=== PATIENT | male | born 1955 | race African-American/Black ===

== ENCOUNTER 2016-10-08 14:07 | Inpatient (IN) | payer MEDICAID ==
[~2016-10-08] VITALS: Ht 177.8 cm; Wt 88.7 kg
[~2016-10-08 14:07] MED LIST: ASPI81CH43 PO; CAR125T PO; ESCI5TAB PO; FURO20TA PO; FURO40TA4 PO; HYDR-2652 PO; ISOS30TA17 PO; SPIR25TA88 PO; SUCR1TAB36 PO
[2016-10-08] MEDS ORDERED: LISINOPRIL 10 MG TAB PO ONE (14:30)
[2016-10-08] MEDS ORDERED: LABETALOL HCL 5 MG/ML 4ML SYRINGE IV ONE (14:30)
[2016-10-08 14:44] LABS: Basophils # (auto) 0 uL; Basophils % (auto) 0.2 % (0.0-2.0); DEFINITIVE VIEW TRANSMISSION; Eosinophils # (auto) 0.1 uL; Eosinophils % (auto) 1.2 % (0.0-7.0); Hematocrit 34.2 % (41.0-53.0); Hemoglobin 10.7 g/dL (13.5-17.5); Lymphocytes # (auto) 1.4 uL; Mean Corpuscular Hemoglobin 26.1 pg (28.0-32.0); Mean Corpuscular Hgb Conc. 31.4 g/dL (32.0-36.0); Mean Corpuscular Volume 82.9 fL (80.0-100.0); Mean Platelet Volume 8.3 fL (7.4-10.4); Monocytes # (auto) 0.6 uL; Monocytes % (auto) 8.6 % (0.0-12.0); Neutrophils # (auto) 4.7 uL; Platelet Count (auto) 338 10^3/uL (140-450); Red Cell Distribution Width 18.8 % (11.6-16.0); White Blood Cell 6.9 10^3/uL (4.4-10.8)
[2016-10-08 15:08] LABS: Albumin 3.5 g/dL (3.4-5.0); BUN/Creatinine Ratio 24.1; Bilirubin, Total 0.4 mg/dL (0.2-1.0); Potassium 4.4 mmol/L (3.5-5.1); Total Protein 7.4 g/dL (6.4-8.2)
[2016-10-08] MEDS ORDERED: ASPirin 325 MG TAB PO ONE (15:45)
[2016-10-08] MEDS ORDERED: ENOXAPARIN SOD 80 MG/0.8ML SYRINGE SC ONE (15:45)
[2016-10-08] MEDS ORDERED: MORPHINE SULFATE 4 MG/ML SYRG IV ONE (16:00)
[2016-10-08] MEDS ORDERED: ONDANSETRON HCL 4 MG/2 ML VIAL IV ONE (16:00)
[2016-10-08] MEDS ORDERED: cloNIDine HCL 0.1 MG TAB ONE (18:51)
[2016-10-08] MEDS ORDERED: MORPHINE SULF INJ 2 MG/ML SYRINGE 1ML IV PRN (19:30)
[2016-10-08] MEDS ORDERED: ISOSORBIDE MONONITRATE 60 MG TAB PO ONE (19:30)
[2016-10-08] MEDS ORDERED: KETOROLAC TROMETH 30 MG/ML 1ML VIAL IV ONE (19:30)
[2016-10-08] MEDS ORDERED: NITROGLYCERIN 0.4 MG SL TAB SL PRN (19:30)
[2016-10-08] MEDS ORDERED: hydrALAZINE HCL 20 MG/ML VL IV PRN (19:45)
[2016-10-08] MEDS ORDERED: cloNIDine HCL 0.1 MG TAB PO ONE (20:00)
[2016-10-08 22:00] VITALS: BP 141/93
[2016-10-08] MEDS: hydrALAZINE HCL 25 MG TAB PO SCH (22:02)
[2016-10-08] MEDS: CARVEDILOL 12.5 MG TAB PO SCH (22:03)
[2016-10-08 22:32] LABS: Urine Bilirubin Negative (Negative); Urine Blood 2+ /uL (Negative); Urine Color Yellow (Yellow); Urine Glucose Normal (Normal); Urine Hyaline Cast MOD /lpf (0 - 2); Urine Ketone TRACE (Negative); Urine Mucus FEW (None Seen); Urine Nitrite Negative (Negative); Urine RBC 9 /hpf (0 - 3); Urine Squamous Epithelial Cell FEW /hpf (<5)
[2016-10-09 01:29] VITALS: BP 141/93
[2016-10-09 05:00] VITALS: BP 122/91
[2016-10-09] MEDS: hydrALAZINE HCL 25 MG TAB PO SCH ×2 (05:47→14:00)
[2016-10-09] MEDS ORDERED: HYDROcodone-ACET 5/325MG TAB PO PRN (06:45)
[2016-10-09 08:55] VITALS: BP 132/83
[2016-10-09] MEDS: CARVEDILOL 12.5 MG TAB PO SCH (09:49)
[2016-10-09] MEDS ORDERED: POTASSIUM CHL 20 Meq TABLET PO SCH (10:00)
[2016-10-09] MEDS ORDERED: SPIRONOLACTONE 25 MG TAB PO SCH (10:00)
[2016-10-09] MEDS ORDERED: ASPirin 81 mg TAB PO SCH (10:00)
[2016-10-09] MEDS ORDERED: ISOSORBIDE MONONITRATE 60 MG TAB PO SCH (10:00)
[2016-10-09] MEDS ORDERED: FUROSEMIDE 40 MG TAB PO SCH (10:00)
[2016-10-09] MEDS ORDERED: MORPHINE SULF INJ 2 MG/ML SYRINGE 1ML IV PRN (10:45)
[2016-10-09 13:00] VITALS: BP 126/83
== END 2016-10-09 14:05 | disposition left against medical advice (07) | DRG 198 ==
LOC: EDUNIT# 14:07 → ER 14:16 → TELE 14:17 → TELE-WESTW 20:52
PROVIDERS: ADMIT Internal Medicine; ATTEND Internal Medicine
DX: I25.10 Atherosclerotic heart disease of native coronary artery without angina pectoris (principal); I50.23 Acute on chronic systolic (congestive) heart failure; I10 Essential (primary) hypertension; F17.210 Nicotine dependence, cigarettes, uncomplicated; F12.90 Cannabis use, unspecified, uncomplicated; D64.9 Anemia, unspecified; I16.0 Hypertensive urgency; Z82.49 Family history of ischemic heart disease and other diseases of the circulatory system; Z86.73 Personal history of transient ischemic attack (TIA), and cerebral infarction without residual deficits; Z91.19 Patient's noncompliance with other medical treatment and regimen; Z90.49 Acquired absence of other specified parts of digestive tract
CPT/HCPCS: 36415; 71010; 73030; 80053; 81001; 84484; 85025; 93005; 96372; 96374; 96375; J1885; J2405; J3490

== ENCOUNTER 2016-11-01 05:31 | Emergency (ER) | payer MEDICAID ==
[~2016-11-01] VITALS: Ht 177.8 cm; Wt 84.4 kg
[2016-11-01] MEDS ORDERED: hydrALAZINE HCL 10 MG TAB PO ONE (05:45)
[2016-11-01] MEDS ORDERED: LABETALOL HCL 5 MG/ML 4ML SYRINGE IV ONE (06:45)
[2016-11-01 06:49] LABS: Basophils # (auto) 0.1 uL; Basophils % (auto) 1.1 % (0.0-2.0); DEFINITIVE VIEW TRANSMISSION; Eosinophils # (auto) 0.1 uL; Eosinophils % (auto) 1.7 % (0.0-7.0); Hematocrit 33.3 % (41.0-53.0); Hemoglobin 10.2 g/dL (13.5-17.5); Lymphocytes # (auto) 1.2 uL; Lymphocytes % (auto) 20.1 % (10.0-50.0); Mean Corpuscular Hemoglobin 25.5 pg (28.0-32.0); Mean Corpuscular Hgb Conc. 30.7 g/dL (32.0-36.0); Mean Corpuscular Volume 83.1 fL (80.0-100.0); Monocytes # (auto) 0.5 uL; Monocytes % (auto) 7.9 % (0.0-12.0); Neutrophils # (auto) 4.1 uL; Neutrophils % (auto) 69.2 % (37.0-80.0); Platelet Count (auto) 421 10^3/uL (140-450); Red Cell Distribution Width 19.5 % (11.6-16.0); White Blood Cell 5.9 10^3/uL (4.4-10.8)
[2016-11-01 06:54] VITALS: BP 172/115
[2016-11-01 07:12] LABS: Albumin 3.5 g/dL (3.4-5.0); Calcium 9.2 mg/dL (8.5-10.1); Potassium 3.7 mmol/L (3.5-5.1)
[2016-11-01 07:14] LABS: BUN/Creatinine Ratio 14.7
[2016-11-01 07:17] LABS: Bilirubin, Total 0.4 mg/dL (0.2-1.0); Total Protein 7.5 g/dL (6.4-8.2)
[2016-11-01] MEDS ORDERED: cloNIDine HCL 0.1 MG TAB PO ONE (07:45)
== END 2016-11-01 09:09 | disposition home or self-care (01) ==
LOC: ER 05:31 → EDBD 05:31 → ER 09:09
DX: I10 Essential (primary) hypertension (principal); I50.9 Heart failure, unspecified; Z79.899 Other long term (current) drug therapy; Z86.73 Personal history of transient ischemic attack (TIA), and cerebral infarction without residual deficits; F17.210 Nicotine dependence, cigarettes, uncomplicated; F12.10 Cannabis abuse, uncomplicated
CPT/HCPCS: 36415; 80053; 85025; 93005; 96374; 99285; J3490

== ENCOUNTER 2016-12-04 01:25 | Inpatient (IN) | payer MEDICAID ==
[~2016-12-04] VITALS: Ht 175.3 cm; Wt 2.5 kg
[2016-12-04 02:05] LABS: Basophils # (auto) 0 uL; Basophils % (auto) 0.8 % (0.0-2.0); DEFINITIVE VIEW TRANSMISSION; Eosinophils # (auto) 0.1 uL; Eosinophils % (auto) 1.1 % (0.0-7.0); Hematocrit 36.8 % (41.0-53.0); Lymphocytes # (auto) 1.1 uL; Lymphocytes % (auto) 22.3 % (10.0-50.0); Mean Corpuscular Hemoglobin 26.9 pg (28.0-32.0); Mean Corpuscular Hgb Conc. 32.5 g/dL (32.0-36.0); Mean Platelet Volume 8.5 fL (7.4-10.4); Monocytes # (auto) 0.5 uL; Monocytes % (auto) 10.2 % (0.0-12.0); Neutrophils # (auto) 3.2 uL; Neutrophils % (auto) 65.6 % (37.0-80.0); Platelet Count (auto) 339 10^3/uL (140-450); White Blood Cell 4.9 10^3/uL (4.4-10.8)
[2016-12-04 02:19] LABS: Albumin 3.4 g/dL (3.4-5.0); Magnesium 2.1 mg/dL (1.6-2.6); Potassium 4.1 mmol/L (3.5-5.1)
[2016-12-04 02:36] LABS: Bilirubin, Total 0.3 mg/dL (0.2-1.0); Total Protein 7.6 g/dL (6.4-8.2)
[2016-12-04] MEDS ORDERED: cloNIDine HCL 0.1 MG TAB PO ONE (02:45)
[2016-12-04] MEDS ORDERED: ASPirin 81 mg TAB PO ONE (02:45)
[2016-12-04 02:48] LABS: Platelet Estimate Adequate
[2016-12-04 02:49] LABS: Anisocytosis Slight
[2016-12-04 02:50] LABS: Microcytosis Slight; Ovalocytes FEW
[2016-12-04] MEDS ORDERED: LABETALOL HCL 200 MG TAB PO ONE (03:45)
[2016-12-04 04:34] LABS: B-Type Natriuretic Peptide 915.35 pg/mL (0-100)
[2016-12-04 04:35] LABS: Temperature: 21.6 C (20.0-25.0)
[2016-12-04] MEDS ORDERED: FUROSEMIDE 40 MG/4 ML VIAL IV ONE (04:45)
[2016-12-04 05:37] LABS: Urine RBC None Seen /hpf (0 - 3)
[2016-12-04 05:48] LABS: Urine Bilirubin Negative (Negative); Urine Blood Negative /uL (Negative); Urine Color Colorless (Yellow); Urine Glucose Normal (Normal); Urine Ketone Negative (Negative); Urine Nitrite Negative (Negative); Urine Urobilinogen Normal (Negative); Urine pH 6.5 (5.0-8.0)
[2016-12-04] MEDS ORDERED: PROMETHAZINE HCL 25 MG/ML 1ML IV PRN (08:30)
[2016-12-04] MEDS ORDERED: HYDROcodone-ACET 5/325MG TAB PO PRN (08:30)
[2016-12-04] MEDS ORDERED: ENALAPRILAT 1.25 MG/ML-1ML VIAL IV PRN (08:30)
[2016-12-04] MEDS ORDERED: MORPHINE SULF INJ 2 MG/ML SYRINGE 1ML IV PRN ×2 (08:30)
[2016-12-04] MEDS ORDERED: LORazepam 0.5 MG TAB PO PRN (08:30)
[2016-12-04] MEDS ORDERED: ACETAMINOPHEN 500 MG TAB PO PRN (08:30)
[2016-12-04] MEDS ORDERED: TEMAZEPAM 15 MG CAP PO PRN (08:30)
[2016-12-04] MEDS ORDERED: NITROGLYCERIN 0.4 MG SL TAB SL PRN (08:30)
[2016-12-04] MEDS ORDERED: LACTULOSE 20Gm/30ML SOLN PO PRN (08:30)
[2016-12-04 09:29] VITALS: BP 156/102
[2016-12-04] MEDS ORDERED: ALBUTEROL SULF 2.5 MG/0.5ML(0.5%) NEB SOLN NEB PRN (09:30)
[2016-12-04] MEDS ORDERED: IPRATROPIUM BROM 0.5 MG/2.5ML INH SOL NEB SCH (09:30)
[2016-12-04] MEDS ORDERED: ALBUTEROL SULF 2.5 MG/0.5ML(0.5%) NEB SOLN NEB SCH (09:30)
[2016-12-04] MEDS ORDERED: ENALAPRIL MALEATE 2.5 MG TAB PO SCH (10:00)
[2016-12-04] MEDS ORDERED: CARVEDILOL 12.5 MG TAB PO SCH (10:00)
[2016-12-04] MEDS ORDERED: ISOSORBIDE MONONITRATE 10 MG PO SCH (10:00)
[2016-12-04] MEDS ORDERED: ASPirin 81 mg TAB PO SCH (10:00)
[2016-12-04] MEDS ORDERED: FUROSEMIDE 40 MG/4 ML VIAL IV SCH (10:00)
[2016-12-04] MEDS ORDERED: ISOSORBIDE DINITRATE 10 MG TAB PO SCH (10:00)
[2016-12-04] MEDS ORDERED: CITALOPRAM HYDROBR 20 MG TAB PO SCH ×2 (10:00)
[2016-12-04] MEDS ORDERED: POTASSIUM CHL 20 Meq TABLET PO SCH (10:00)
[2016-12-04] MEDS ORDERED: ESCITALOPRAM OXALATE 5 MG PO SCH (10:00)
[2016-12-04] MEDS ORDERED: ENOXAPARIN SOD 40 MG/0.4 ML SYRINGE SC SCH (10:00)
[2016-12-04] MEDS ORDERED: PATIENTS OWN MEDICATION (Hydralazine Hcl 50 MG) PO SCH ×2 (12:00)
[2016-12-04] MEDS ORDERED: hydrALAZINE HCL 25 MG TAB PO SCH (12:00)
[2016-12-04] MEDS ORDERED: SUCRALFATE 1 GM TAB PO SCH (12:00)
[2016-12-04] MEDS ORDERED: SODIUM CHLOR 0.9% PF (SALINE LOCK) 10ML VIAL IV SCH (14:00)
[2016-12-04] MEDS ORDERED: SPIRONOLACTONE 25 MG TAB PO SCH (18:00)
[2016-12-04] MEDS ORDERED: ATORVASTATIN 20 MG TAB PO SCH (22:00)
== END 2016-12-04 13:37 | disposition home or self-care (01) | DRG 194 ==
LOC: EDBD 01:25 → ER 01:27 → TELE 01:28
PROVIDERS: ADMIT Internal Medicine; ATTEND Internal Medicine
DX: I11.0 Hypertensive heart disease with heart failure (principal); N28.89 Other specified disorders of kidney and ureter; I50.33 Acute on chronic diastolic (congestive) heart failure; F17.210 Nicotine dependence, cigarettes, uncomplicated; Z82.49 Family history of ischemic heart disease and other diseases of the circulatory system; Z86.73 Personal history of transient ischemic attack (TIA), and cerebral infarction without residual deficits; Z91.19 Patient's noncompliance with other medical treatment and regimen; Z90.49 Acquired absence of other specified parts of digestive tract
CPT/HCPCS: 36415; 70450; 71010; 80053; 81001; 82550; 83735; 83880; 84443; 84484; 85025; 85379; 85652; 86141; 93005; 94640; 96374; G0434

== ENCOUNTER 2016-12-20 04:17 | Emergency (ER) | payer MEDICAID ==
[2016-12-20] MEDS ORDERED: NIFEdipine 10 MG CAP PO ONE (04:45)
[2016-12-20] MEDS ORDERED: LABETALOL HCL 5 MG/ML 4ML SYRINGE IV ONE (07:15)
[2016-12-20 07:28] VITALS: BP 166/102
== END 2016-12-20 09:20 | disposition home or self-care (01) ==
LOC: ER 04:17
DX: I11.0 Hypertensive heart disease with heart failure (principal); I50.9 Heart failure, unspecified; F17.210 Nicotine dependence, cigarettes, uncomplicated; F12.10 Cannabis abuse, uncomplicated; Z91.19 Patient's noncompliance with other medical treatment and regimen; Z79.899 Other long term (current) drug therapy
CPT/HCPCS: 96374; 99284; J3490

== ENCOUNTER 2016-12-26 05:06 | Inpatient (IN) | payer MEDICAID ==
[~2016-12-26] VITALS: Ht 175.3 cm; Wt 79.4 kg
[2016-12-26] MEDS ORDERED: cloNIDine HCL 0.1 MG TAB ONE (05:26)
[2016-12-26] MEDS ORDERED: cloNIDine HCL 0.1 MG TAB PO ONE ×2 (05:45)
[2016-12-26 06:59] LABS: Basophils # (auto) 0 uL; Basophils % (auto) 0.6 % (0.0-2.0); Eosinophils # (auto) 0.1 uL; Eosinophils % (auto) 1.7 % (0.0-7.0); Hematocrit 37.8 % (41.0-53.0); Hemoglobin 12.1 g/dL (13.5-17.5); Lymphocytes # (auto) 1.4 uL; Lymphocytes % (auto) 22.4 % (10.0-50.0); Mean Corpuscular Hemoglobin 27.1 pg (28.0-32.0); Mean Corpuscular Volume 84.6 fL (80.0-100.0); Mean Platelet Volume 8.6 fL (7.4-10.4); Monocytes # (auto) 0.4 uL; Monocytes % (auto) 7.4 % (0.0-12.0); Neutrophils # (auto) 4.1 uL; Neutrophils % (auto) 67.9 % (37.0-80.0); Platelet Count (auto) 304 10^3/uL (140-450); Red Cell Distribution Width 18.9 % (11.6-16.0); White Blood Cell 6.1 10^3/uL (4.4-10.8)
[2016-12-26 07:11] LABS: INR 0.99 (0.9-1.15); Partial Thromboplastin Time 24.3 sec (22.64-33.71); Prothrombin Time 10.7 sec (9.37-12.3)
[2016-12-26 07:35] LABS: Albumin 3.4 g/dL (3.4-5.0); BUN/Creatinine Ratio 11.7; Bilirubin, Total 0.5 mg/dL (0.2-1.0); Calcium 8.5 mg/dL (8.5-10.1); Magnesium 2.4 mg/dL (1.6-2.6); Potassium 4.8 mmol/L (3.5-5.1); Total Protein 7.6 g/dL (6.4-8.2)
[2016-12-26 07:43] LABS: Temperature: 22.1 C (20.0-25.0)
[2016-12-26] MEDS ORDERED: LACTULOSE 20Gm/30ML SOLN PO PRN (09:30)
[2016-12-26] MEDS ORDERED: HYDROcodone-ACET 5/325MG TAB PO PRN (09:30)
[2016-12-26] MEDS ORDERED: FUROSEMIDE 40 MG/4 ML VIAL IV ONE (09:30)
[2016-12-26] MEDS ORDERED: LORazepam 0.5 MG TAB PO PRN (09:30)
[2016-12-26] MEDS ORDERED: ACETAMINOPHEN 500 MG TAB PO PRN (09:30)
[2016-12-26] MEDS ORDERED: NITROGLYCERIN 0.4 MG SL TAB SL PRN (09:30)
[2016-12-26] MEDS ORDERED: ONDANSETRON HCL 4 MG/2 ML VIAL IV PRN (09:30)
[2016-12-26] MEDS ORDERED: TEMAZEPAM 15 MG CAP PO PRN (09:30)
[2016-12-26] MEDS ORDERED: MORPHINE SULF INJ 2 MG/ML SYRINGE 1ML IV PRN ×2 (09:30)
[2016-12-26 09:53] VITALS: BP 198/134
[2016-12-26] MEDS ORDERED: ENALAPRIL MALEATE 10 MG TAB PO SCH (10:00)
[2016-12-26] MEDS ORDERED: ISOSORBIDE DINITRATE 10 MG TAB PO SCH (10:00)
[2016-12-26] MEDS ORDERED: ISOSORBIDE MONONITRATE 10 MG PO SCH (10:00)
[2016-12-26] MEDS ORDERED: FUROSEMIDE 40 MG/4 ML VIAL IV SCH (10:00)
[2016-12-26] MEDS ORDERED: CARVEDILOL 12.5 MG TAB PO SCH ×2 (10:00→22:00)
[2016-12-26] MEDS ORDERED: POTASSIUM CHL 20 Meq TABLET PO SCH (10:00)
[2016-12-26] MEDS ORDERED: CITALOPRAM HYDROBR 20 MG TAB PO SCH (10:00)
[2016-12-26] MEDS ORDERED: ASPirin 81 mg TAB PO SCH (10:00)
[2016-12-26] MEDS ORDERED: ESCITALOPRAM OXALATE 5 MG PO SCH (10:00)
[2016-12-26] MEDS ORDERED: hydrALAZINE HCL 20 MG/ML VL IV ONE (10:30)
[2016-12-26] MEDS ORDERED: hydrALAZINE HCL 20 MG/ML VL IV PRN ×2 (10:30)
[2016-12-26 10:36] LABS: Urine Bilirubin Negative (Negative); Urine Blood TRACE /uL (Negative); Urine Color Yellow (Yellow); Urine Glucose Normal (Normal); Urine Ketone Negative (Negative); Urine Mucus FEW (None Seen); Urine Nitrite Negative (Negative); Urine RBC 4 /hpf (0 - 3); Urine Urobilinogen Normal (Negative); Urine pH 6.5 (5.0-8.0)
[2016-12-26] MEDS ORDERED: hydrALAZINE HCL 25 MG TAB PO SCH (12:00)
[2016-12-26] MEDS ORDERED: SUCRALFATE 1 GM TAB PO SCH (12:00)
[2016-12-26] MEDS ORDERED: PATIENTS OWN MEDICATION (Hydralazine Hcl 50 MG) PO SCH ×2 (12:00)
[2016-12-26] MEDS ORDERED: SODIUM CHLOR 0.9% PF (SALINE LOCK) 10ML VIAL IV SCH (14:00)
[2016-12-26] MEDS ORDERED: SPIRONOLACTONE 25 MG TAB PO SCH (18:00)
[2016-12-26] MEDS ORDERED: ATORVASTATIN 20 MG TAB PO SCH (22:00)
== END 2016-12-26 12:26 | disposition left against medical advice (07) | DRG 194 ==
LOC: ER 05:06 → EDBD 05:06 → TELE 05:07
PROVIDERS: ADMIT Internal Medicine; ATTEND Internal Medicine
DX: I11.0 Hypertensive heart disease with heart failure (principal); I63.9 Cerebral infarction, unspecified; I50.33 Acute on chronic diastolic (congestive) heart failure; F17.210 Nicotine dependence, cigarettes, uncomplicated; R74.8 Abnormal levels of other serum enzymes; I16.0 Hypertensive urgency; I24.9 Acute ischemic heart disease, unspecified; Z86.73 Personal history of transient ischemic attack (TIA), and cerebral infarction without residual deficits; Z91.19 Patient's noncompliance with other medical treatment and regimen; Z82.49 Family history of ischemic heart disease and other diseases of the circulatory system; Z90.49 Acquired absence of other specified parts of digestive tract
CPT/HCPCS: 36415; 71020; 80053; 81001; 82550; 83735; 83880; 84443; 84484; 85025; 85379; 85610; 85652; 85730; 86141; 93005; 94761; 96374; 96375; 96376; G0434

== ENCOUNTER 2016-12-27 09:10 | Emergency (ER) | payer MEDICAID ==
[~2016-12-27] VITALS: Ht 175.3 cm; Wt 81.6 kg
[2016-12-27] MEDS ORDERED: ASPirin 81 mg TAB PO ONE (09:30)
[2016-12-27 09:52] LABS: Basophils # (auto) 0 uL; Basophils % (auto) 0.1 % (0.0-2.0); Eosinophils # (auto) 0 uL; Eosinophils % (auto) 0.3 % (0.0-7.0); Hematocrit 39.8 % (41.0-53.0); Lymphocytes % (auto) 11.6 % (10.0-50.0); Mean Corpuscular Hemoglobin 27.5 pg (28.0-32.0); Mean Corpuscular Hgb Conc. 32.7 g/dL (32.0-36.0); Mean Corpuscular Volume 84.1 fL (80.0-100.0); Mean Platelet Volume 8.4 fL (7.4-10.4); Monocytes # (auto) 0.5 uL; Monocytes % (auto) 5.6 % (0.0-12.0); Neutrophils # (auto) 6.8 uL; Neutrophils % (auto) 82.4 % (37.0-80.0); Platelet Count (auto) 356 10^3/uL (140-450); Red Cell Distribution Width 18.4 % (11.6-16.0); White Blood Cell 8.2 10^3/uL (4.4-10.8)
[2016-12-27 10:06] LABS: INR 1.06 (0.9-1.15); Partial Thromboplastin Time 28.2 sec (22.64-33.71); Prothrombin Time 11.4 sec (9.37-12.3)
[2016-12-27 10:38] LABS: Albumin 3.5 g/dL (3.4-5.0); BUN/Creatinine Ratio 14.5; Bilirubin, Total 0.6 mg/dL (0.2-1.0); Calcium 9.3 mg/dL (8.5-10.1); Magnesium 2.3 mg/dL (1.6-2.6); Potassium 4.1 mmol/L (3.5-5.1); Total Protein 7.8 g/dL (6.4-8.2)
[2016-12-27 11:38] VITALS: BP 146/112
== END 2016-12-27 11:39 | disposition home or self-care (01) ==
LOC: EDBD 09:10 → ER 09:13
DX: R79.89 Other specified abnormal findings of blood chemistry (principal); I11.0 Hypertensive heart disease with heart failure; I50.9 Heart failure, unspecified; F17.210 Nicotine dependence, cigarettes, uncomplicated; F12.10 Cannabis abuse, uncomplicated; Z86.73 Personal history of transient ischemic attack (TIA), and cerebral infarction without residual deficits; Z90.49 Acquired absence of other specified parts of digestive tract; Z79.899 Other long term (current) drug therapy
CPT/HCPCS: 36415; 80053; 83735; 84484; 85025; 85610; 85730; 93005; 94761

== ENCOUNTER 2017-02-03 04:15 | Inpatient (IN) | payer MEDICAID ==
[~2017-02-03] VITALS: Ht 177.8 cm; Wt 88.7 kg
[2017-02-03 05:20] LABS: Basophils # (auto) 0.1 uL; Basophils % (auto) 2.4 % (0.0-2.0); Eosinophils # (auto) 0.1 uL; Eosinophils % (auto) 2.1 % (0.0-7.0); Hematocrit 36.8 % (41.0-53.0); Lymphocytes # (auto) 1.4 uL; Lymphocytes % (auto) 24.8 % (10.0-50.0); Mean Corpuscular Hemoglobin 27.9 pg (28.0-32.0); Mean Corpuscular Hgb Conc. 32.6 g/dL (32.0-36.0); Mean Corpuscular Volume 85.5 fL (80.0-100.0); Mean Platelet Volume 8.6 fL (7.4-10.4); Monocytes # (auto) 0.5 uL; Monocytes % (auto) 9.9 % (0.0-12.0); Neutrophils # (auto) 3.3 uL; Neutrophils % (auto) 60.8 % (37.0-80.0); Platelet Count (auto) 395 10^3/uL (140-450); White Blood Cell 5.5 10^3/uL (4.4-10.8)
[2017-02-03 05:41] LABS: Calcium 8.7 mg/dL (8.5-10.1); Potassium 3.7 mmol/L (3.5-5.1)
[2017-02-03 05:45] LABS: Albumin 3.3 g/dL (3.4-5.0); BUN/Creatinine Ratio 15.2
[2017-02-03 06:02] LABS: Bilirubin, Total 0.3 mg/dL (0.2-1.0); Total Protein 7.3 g/dL (6.4-8.2)
[2017-02-03] MEDS ORDERED: ASPirin 81 mg TAB PO ONE (06:30)
[2017-02-03] MEDS ORDERED: FUROSEMIDE 20 MG/2 ML VIAL IV ONE ×2 (06:30→13:00)
[2017-02-03] MEDS ORDERED: cloNIDine HCL 0.1 MG TAB PO ONE (07:00)
[2017-02-03] MEDS ORDERED: LABETALOL HCL 5 MG/ML 4ML SYRINGE IV ONE (07:00)
[2017-02-03] MEDS ORDERED: ENOXAPARIN SOD 100 MG/1 ML SYRINGE SC ONE (07:00)
[2017-02-03] MEDS ORDERED: DOCUSATE SOD 100 MG CAP PO PRN (13:00)
[2017-02-03] MEDS ORDERED: MORPHINE SULF INJ 2 MG/ML SYRINGE 1ML IV PRN ×2 (13:00)
[2017-02-03] MEDS ORDERED: NITROGLYCERIN 0.4 MG SL TAB SL PRN (13:00)
[2017-02-03] MEDS ORDERED: HYDROcodone-ACET 5/325MG TAB PO PRN (13:00)
[2017-02-03] MEDS ORDERED: POTASSIUM CHLORIDE 8 MEQ TAB PO ONE (13:00)
[2017-02-03] MEDS ORDERED: ACETAMINOPHEN 325 MG TAB PO PRN (13:00)
[2017-02-03] MEDS ORDERED: ONDANSETRON HCL 4 MG/2 ML VIAL IV PRN (13:00)
[2017-02-03] MEDS: SODIUM CHLOR 0.9% PF (SALINE LOCK) 10ML VIAL IV SCH ×2 (14:07→22:17)
[2017-02-03 15:54] VITALS: BP 149/107
[2017-02-03] MEDS: LABETALOL HCL 5 MG/ML 4ML SYRINGE IV PRN (17:22)
[2017-02-03 17:23] VITALS: BP 166/118
[2017-02-03] MEDS: Boost Glucose Control 8 Ounces PO SCH (19:00)
[2017-02-03] MEDS: TEMAZEPAM 15 MG CAP PO PRN (20:42)
[2017-02-03 22:00] VITALS: BP 143/105
[2017-02-04] VITALS (7 sets, daily range): BP systolic 141–154; BP diastolic 92–118
[2017-02-04 05:48] LABS: Basophils # (auto) 0.1 uL; Basophils % (auto) 1.7 % (0.0-2.0); Eosinophils # (auto) 0.1 uL; Eosinophils % (auto) 1.6 % (0.0-7.0); Hematocrit 38.2 % (41.0-53.0); Hemoglobin 12.6 g/dL (13.5-17.5); Lymphocytes # (auto) 1.4 uL; Lymphocytes % (auto) 27.3 % (10.0-50.0); Mean Corpuscular Hemoglobin 28.1 pg (28.0-32.0); Mean Corpuscular Hgb Conc. 33.1 g/dL (32.0-36.0); Mean Corpuscular Volume 84.9 fL (80.0-100.0); Mean Platelet Volume 8.9 fL (7.4-10.4); Monocytes # (auto) 0.6 uL; Monocytes % (auto) 11.3 % (0.0-12.0); Neutrophils % (auto) 58.1 % (37.0-80.0); Platelet Count (auto) 423 10^3/uL (140-450); Red Cell Distribution Width 17.4 % (11.6-16.0); White Blood Cell 5.1 10^3/uL (4.4-10.8)
[2017-02-04] MEDS: SODIUM CHLOR 0.9% PF (SALINE LOCK) 10ML VIAL IV SCH ×2 (06:33→22:00)
[2017-02-04 06:37] LABS: Albumin 3.4 g/dL (3.4-5.0); BUN/Creatinine Ratio 18.1; Bilirubin, Total 0.3 mg/dL (0.2-1.0); Potassium 3.9 mmol/L (3.5-5.1); Total Protein 7.7 g/dL (6.4-8.2)
[2017-02-04] MEDS: Boost Glucose Control 8 Ounces PO SCH ×3 (08:00→18:00)
[2017-02-04] MEDS: FUROSEMIDE 40 MG/4 ML VIAL IV SCH (09:27)
[2017-02-04] MEDS: POTASSIUM CHLORIDE 8 MEQ TAB PO SCH (09:28)
[2017-02-04] MEDS: ASPirin-EC 81 mg tab PO SCH (09:28)
[2017-02-04] MEDS: MULTIPLE VITAMIN TAB PO SCH (10:00)
[2017-02-04] MEDS ORDERED: LISINOPRIL 20 MG TAB PO SCH (10:00)
[2017-02-04 10:12] LABS: INR 0.99 (0.9-1.15); Prothrombin Time 10.7 sec (9.37-12.3)
[2017-02-04] MEDS: METOPROLOL TARTRATE 25 MG TAB PO SCH ×2 (11:03→21:21)
[2017-02-04] MEDS ORDERED: LABETALOL HCL 5 MG/ML 4ML SYRINGE IV ONE (13:53)
[2017-02-04] MEDS: LABETALOL HCL 5 MG/ML 4ML SYRINGE IV PRN (14:08)
[2017-02-04] MEDS: amLODIPine BESYLATE 5 MG TAB PO SCH (17:28)
[2017-02-04] MEDS: hydrALAZINE HCL 25 MG TAB PO SCH (19:01)
[2017-02-04] MEDS: LOSARTAN POTASSIUM 50 MG TAB PO SCH (19:01)
[2017-02-05 05:00] VITALS: BP 141/89
[2017-02-05] MEDS: hydrALAZINE HCL 25 MG TAB PO SCH ×3 (05:19→21:41)
[2017-02-05 05:59] LABS: Basophils # (auto) 0.1 uL; Basophils % (auto) 1.5 % (0.0-2.0); Eosinophils # (auto) 0.1 uL; Eosinophils % (auto) 1.4 % (0.0-7.0); Hematocrit 44.9 % (41.0-53.0); Hemoglobin 14.5 g/dL (13.5-17.5); Lymphocytes # (auto) 1.9 uL; Lymphocytes % (auto) 30.2 % (10.0-50.0); Mean Corpuscular Hemoglobin 27.6 pg (28.0-32.0); Mean Corpuscular Hgb Conc. 32.2 g/dL (32.0-36.0); Mean Corpuscular Volume 85.7 fL (80.0-100.0); Monocytes # (auto) 0.5 uL; Monocytes % (auto) 7.8 % (0.0-12.0); Neutrophils # (auto) 3.7 uL; Neutrophils % (auto) 59.1 % (37.0-80.0); Platelet Count (auto) 473 10^3/uL (140-450); Red Cell Distribution Width 17.9 % (11.6-16.0); White Blood Cell 6.3 10^3/uL (4.4-10.8)
[2017-02-05] MEDS: SODIUM CHLOR 0.9% PF (SALINE LOCK) 10ML VIAL IV SCH ×3 (06:00→21:41)
[2017-02-05 06:12] LABS: Calcium 10.2 mg/dL (8.5-10.1); Potassium 4.6 mmol/L (3.5-5.1)
[2017-02-05 06:14] LABS: BUN/Creatinine Ratio 21.8
[2017-02-05 06:17] LABS: Bilirubin, Total 0.4 mg/dL (0.2-1.0); Total Protein 8.8 g/dL (6.4-8.2)
[2017-02-05] MEDS: Boost Glucose Control 8 Ounces PO SCH ×3 (07:55→17:51)
[2017-02-05] MEDS: LABETALOL HCL 5 MG/ML 4ML SYRINGE IV PRN (07:55)
[2017-02-05 09:00] VITALS: BP 149/90
[2017-02-05] MEDS: FUROSEMIDE 40 MG/4 ML VIAL IV SCH (09:26)
[2017-02-05] MEDS: POTASSIUM CHLORIDE 8 MEQ TAB PO SCH (09:26)
[2017-02-05] MEDS: ASPirin-EC 81 mg tab PO SCH (09:26)
[2017-02-05] MEDS: LOSARTAN POTASSIUM 50 MG TAB PO SCH ×2 (09:26→21:41)
[2017-02-05] MEDS: MULTIPLE VITAMIN TAB PO SCH (09:26)
[2017-02-05] MEDS: METOPROLOL TARTRATE 25 MG TAB PO SCH ×2 (09:26→21:40)
[2017-02-05] MEDS: amLODIPine BESYLATE 5 MG TAB PO SCH (09:27)
[2017-02-05] MEDS ORDERED: IODIXANOL 320MG/ML 100ML BTL IV ONE (12:33)
[2017-02-05] MEDS ORDERED: LIDOCAINE 2%HCL (LOCAL ANESTH.) INJ 20ML MDV ONE (12:33)
[2017-02-05 13:00] VITALS: BP 118/80
[2017-02-05] MEDS ORDERED: fentaNYL CITRATE 100 MCG/2 ML VL ONE (13:49)
[2017-02-05] MEDS ORDERED: MIDAZOLAM HCL 1MG/1ML-2 ML VIAL ONE (13:49)
[2017-02-05] MEDS ORDERED: ANGIOMAX 250 MG VIAL IV ONE ×2 (13:49→13:52)
[2017-02-05] MEDS ORDERED: SODIUM CHL 0.9% 0 ML ONE (13:49)
[2017-02-05] MEDS ORDERED: VERAPAMIL 2.5MG/ML INJ 2ML VIAL IV ONE (13:50)
[2017-02-05] MEDS ORDERED: HEPARIN SODIUM (PORCINE) 5000 UNITS/ML 1ML VIAL ONE (14:18)
[2017-02-05] MEDS ORDERED: SODIUM CHLORIDE 0.9% 1,000 ML IV SCH (14:44)
[2017-02-05 17:07] VITALS: BP 129/73
[2017-02-05] MEDS: TEMAZEPAM 15 MG CAP PO PRN (21:44)
[2017-02-05 22:00] VITALS: BP 124/92
[2017-02-06 04:55] VITALS: BP 110/70
[2017-02-06] MEDS: SODIUM CHLOR 0.9% PF (SALINE LOCK) 10ML VIAL IV SCH (06:13)
[2017-02-06] MEDS: hydrALAZINE HCL 25 MG TAB PO SCH (06:14)
[2017-02-06 06:24] LABS: Calcium 10.3 mg/dL (8.5-10.1); Potassium 4.5 mmol/L (3.5-5.1)
[2017-02-06 06:26] LABS: BUN/Creatinine Ratio 26.4
[2017-02-06] MEDS: Boost Glucose Control 8 Ounces PO SCH (08:00)
[2017-02-06 09:00] VITALS: BP 132/88
[2017-02-06] MEDS: ASPirin-EC 81 mg tab PO SCH (10:31)
[2017-02-06] MEDS: MULTIPLE VITAMIN TAB PO SCH (10:31)
[2017-02-06] MEDS: POTASSIUM CHLORIDE 8 MEQ TAB PO SCH (10:31)
[2017-02-06] MEDS: METOPROLOL TARTRATE 25 MG TAB PO SCH (10:33)
[2017-02-06] MEDS: LOSARTAN POTASSIUM 50 MG TAB PO SCH (10:33)
[2017-02-06] MEDS: amLODIPine BESYLATE 5 MG TAB PO SCH (10:34)
[2017-02-06] MEDS: FUROSEMIDE 40 MG/4 ML VIAL IV SCH (10:38)
== END 2017-02-06 12:15 | disposition home or self-care (01) | DRG 190 ==
LOC: ER 04:15 → EDBD 04:15 → TELE 04:16 → TELE-EAST 15:48
PROVIDERS: ADMIT Internal Medicine; ATTEND Internal Medicine
PROC: 4A023N7 Measurement of Cardiac Sampling and Pressure, Left Heart, Percutaneous Approach (ICD-10-PCS; principal; 2017-02-05)
PROC: B2111ZZ Fluoroscopy of Multiple Coronary Arteries using Low Osmolar Contrast (ICD-10-PCS; 2017-02-05)
DX: I21.4 Non-ST elevation (NSTEMI) myocardial infarction (principal); I50.43 Acute on chronic combined systolic (congestive) and diastolic (congestive) heart failure; E44.1 Mild protein-calorie malnutrition; D63.8 Anemia in other chronic diseases classified elsewhere; F12.10 Cannabis abuse, uncomplicated; F17.210 Nicotine dependence, cigarettes, uncomplicated; I11.0 Hypertensive heart disease with heart failure; Z82.49 Family history of ischemic heart disease and other diseases of the circulatory system; Z90.49 Acquired absence of other specified parts of digestive tract; Z91.14 Patient's other noncompliance with medication regimen; Z68.28 Body mass index [BMI] 28.0-28.9, adult
CPT/HCPCS: 36415; 70450; 71010; 80048; 80053; 83735; 83880; 84443; 84484; 85025; 85610; 93005; 93458; 96372; 96374; 96375; 96376; 99152; J2250; J3490; Q9967

== ENCOUNTER 2017-08-26 03:38 | Emergency (ER) | payer MEDICAID ==
[~2017-08-26] VITALS: Ht 182.9 cm; Wt 90.7 kg
[~2017-08-26 03:38] MED LIST changes: -HYDR-2652 PO; +HYDR50TA15 PO
[2017-08-26] MEDS ORDERED: cloNIDine HCL 0.1 MG TAB ONE (03:44)
[2017-08-26] MEDS ORDERED: cloNIDine HCL 0.1 MG TAB PO ONE (03:45)
[2017-08-26 04:22] LABS: Hematocrit 42.8 % (41.0-53.0); Hemoglobin 14.8 g/dL (13.5-17.5); Mean Corpuscular Hemoglobin 31.2 pg (28.0-32.0); Mean Corpuscular Hgb Conc. 34.5 g/dL (32.0-36.0); Mean Corpuscular Volume 90.5 fL (80.0-100.0); Mean Platelet Volume 7.9 fL (6.9-10.8); Platelet Count (auto) 330 10^3/uL (140-450); Red Cell Distribution Width 14.6 % (11.8-14.3); White Blood Cell 4.5 10^3/uL (4.4-10.8)
[2017-08-26 04:29] LABS: Metamyelocytes % 0; Myelocytes % 0; Promyelocytes % 0; Reactive Lymphocytes 0
[2017-08-26 04:36] LABS: Albumin 3.4 g/dL (3.4-5.0); BUN/Creatinine Ratio 15.1; Calcium 9.1 mg/dL (8.5-10.1); Magnesium 2.1 mg/dL (1.6-2.6); Potassium 3.7 mmol/L (3.5-5.1)
[2017-08-26 04:52] LABS: Bilirubin, Total 0.4 mg/dL (0.2-1.0)
[2017-08-26 04:55] LABS: B-Type Natriuretic Peptide 732.58 pg/mL (0-100)
[2017-08-26 05:10] LABS: Platelet Estimate Adequate; RBC Morphology Normal
[2017-08-26 05:12] LABS: Temperature: 22.5 C (20.0-25.0)
[2017-08-26] MEDS ORDERED: MORPHINE SULF INJ 2 MG/ML SYRINGE 1ML IV ONE (05:15)
[2017-08-26] MEDS ORDERED: ONDANSETRON HCL 4 MG/2 ML VIAL IV ONE (05:15)
[2017-08-26] MEDS ORDERED: ASPirin 325 MG TAB PO ONE (05:15)
[2017-08-26 07:20] VITALS: BP 170/84
== END 2017-08-26 10:28 | disposition home or self-care (01) ==
LOC: EDBD 03:38 → ER 03:44
DX: I11.0 Hypertensive heart disease with heart failure (principal); I50.9 Heart failure, unspecified; F17.210 Nicotine dependence, cigarettes, uncomplicated; R51 Headache; Z90.49 Acquired absence of other specified parts of digestive tract; Z79.899 Other long term (current) drug therapy; Z79.82 Long term (current) use of aspirin
CPT/HCPCS: 36415; 71010; 80053; 83735; 83880; 84484; 85007; 85027; 85379; 93005; 94761; 99285; J2270; J2405

== ENCOUNTER 2018-02-08 05:54 | Emergency (ER) | payer MEDICAID ==
[~2018-02-08] VITALS: Ht 157.5 cm; Wt 90.7 kg
[2018-02-08 06:02] VITALS: BP 162/108
== END 2018-02-08 07:06 | disposition left against medical advice (07) ==
LOC: EDBD 05:54 → ER 05:55
DX: G89.29 Other chronic pain (principal); M25.511 Pain in right shoulder; I11.0 Hypertensive heart disease with heart failure; I50.9 Heart failure, unspecified; F17.210 Nicotine dependence, cigarettes, uncomplicated; F12.10 Cannabis abuse, uncomplicated; Z86.73 Personal history of transient ischemic attack (TIA), and cerebral infarction without residual deficits; Z53.29 Procedure and treatment not carried out because of patient's decision for other reasons
CPT/HCPCS: 73030